=== PATIENT | male | born 1985 | race Caucasian/White ===

== ENCOUNTER 2019-03-01 14:12 | Emergency (ER) | payer MEDICAID ==
[2019-03-01] MEDS: HYDROCODONE/APAP (5/325) TAB PO (15:39)
== END 2019-03-01 17:06 | disposition home or self-care (01) ==
LOC: FTE 14:12
DX: S09.90XA Unspecified injury of head, initial encounter (principal); G44.319 Acute post-traumatic headache, not intractable; W22.8XXA Striking against or struck by other objects, initial encounter; Y92.9 Unspecified place or not applicable
CPT/HCPCS: 70450; 99284-25